=== PATIENT | male | born 1960 | race Two or more races ===

== ENCOUNTER 2024-12-23 08:01 | Emergency (ER) | payer MEDICAID, OTHER ==
[~2024-12-23] VITALS: Ht 165.1 cm; Wt 87.2 kg
[~2024-12-23 08:01] MED LIST: DICY20TA; PROM25TA10
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
--- NOTE | 2024-12-23 09:19 | DVH ---
INDICATION: LOW BACK PAIN TO LEFT LOWER LEG TECHNIQUE: 4 views of the lumbar spine were obtained. COMPARISON: None FINDINGS: There are no acute fractures or subluxations. Degenerative disc space narrowing at L5-S1. Suggestion of neural foraminal stenosis at L5-S1. IMPRESSION: No acute fracture or subluxation.
--- NOTE | 2024-12-23 09:22 | DVH ---
CLINICAL INDICATION: Pain TECHNIQUE: XY L KNEE 4V XRAY Comparison: None FINDINGS/IMPRESSION: : Cortical irregularity at the lateral aspect of the patella may represent a mildly displaced fracture. Small joint effusion.
[2024-12-23] MEDS ORDERED: TRAM50TA2 PO (09:46)
[2024-12-23 09:52] VITALS: BP 166/89; PULSE 72; RESP 17; TEMP 98.2; O2SAT 97
== END 2024-12-23 09:53 | disposition home or self-care (01) ==
LOC: ER 08:01
DX: S82.032A Displaced transverse fracture of left patella, initial encounter for closed fracture (principal); M48.061 Spinal stenosis, lumbar region without neurogenic claudication; M54.16 Radiculopathy, lumbar region; F17.210 Nicotine dependence, cigarettes, uncomplicated; Z90.49 Acquired absence of other specified parts of digestive tract; Z79.899 Other long term (current) drug therapy; X58.XXXA Exposure to other specified factors, initial encounter; Y93.89 Activity, other specified; Y92.89 Other specified places as the place of occurrence of the external cause; Y99.8 Other external cause status
CPT/HCPCS: 72100; 73564

== ENCOUNTER 2025-01-25 07:37 | Inpatient (IN) | payer MEDICAID ==
[~2025-01-25] VITALS: Ht 165.1 cm; Wt 89.7 kg
[~2025-01-25 07:37] MED LIST changes: +TRAM50TA2 PO
--- NOTE | 2025-01-25 07:59 | ED.PDOC ---
GI ASSESSMENT HPI Comments 65 y/o M, with no prior medical history presents to the ED for CC of abdominal pain. Patient states, he has been experiencing epigastric abdominal pain with associated nausea, vomiting, and diarrhea x10 days. Patient reports, along the same time symptoms commenced granddaughter landed on epigastric area while jumping on the trampoline. At this time patient c/o 7/10 abdominal pain. Patient denies fever, chills, melena, back pain, or urinary symptoms. No other symptoms or modifying factors are present at this time. Chief Complaint: Abdominal Pain Time Seen by MD: 07:50 Primary Care Provider: AALIYAH Reviewed Notes: Nurses Notes, Medications, Allergies Allergies: Coded Allergies: NO KNOWN ALLERGIES (Unverified , 06/05/13) Home Meds Active Scripts Tramadol Hcl (Tramadol Hcl) 50 Mg Tab, 50 MG PO TID, #20 TAB Prov:PEARL FARAH 12/23/24 Reported Medications Dicyclomine Hcl (Dicyclomine Hcl) 20 Mg Tab, #30 06/05/13 Promethazine Hcl (Promethazine Hcl) 25 Mg Tab, #20 06/05/13 Information Source: Patient Mode of Arrival: Ambulatory Timing: Days Duration: Since onset Prehospital treatment: None Quality: None Vomitus: Watery Stool: Normal Severity: Moderate Recent: None Recent Hx of: None Pain Location: Epigastric Modifying Factors: Nothing Associated sign and symptoms: Nausea, Vomiting, Diarrhea, Abdominal Pain Past Medical History PAST MEDICAL HISTORY: Denies Surgical History: Appendectomy Family History Family History: Family hx of DM, Family hx of heart tristan Social History Smoker: Cigarettes Alcohol: Occasionally Drugs: Denies Drug Use Lives In: Home Constitutional: denies: chills, diaphoresis, fatigue, fever, malaise, sweats, weakness, others EENTM: denies: blurred vision, double vision, ear bleeding, ear discharge, ear drainage, ear pain, ear ringing, eye pain, eye redness, hearing loss, mouth pain, mouth swelling, nasal discharge, nose bleeding, nose congestion, nose pain, photophobia, tearing, throat pain, throat swelling, voice changes, others Respiratory: denies: cough, hemoptysis, orthopnea, SOB at rest, shortness of breath, SOB with excertion, stridor, wheezing, others Cardiovascular: denies: chest pain, dizzy spells, diaphoresis, Dyspnea on exertion, edema, irregular heart beat, left arm pain, lightheadedness, palpitations, PND, syncope, others Gastrointestinal: reports: abdominal pain, diarrhea, nausea, vomiting; denies: abdomen distended, blood streaked bowels, constipated, dysphagia, difficulty swallowing, hematemesis, melena, poor appetite, poor fluid intake, rectal bleeding, rectal pain, others Genitourinary: denies: burning, dysuria, flank pain, frequency, hematuria, incontinence, penile discharge, penile sore, pain, testicle pain, testicle swelling, urgency, others Neurological: denies: dizziness, fainting, headache, left sided numbness, left sided weakness, numbness, paresthesia, pre-existing deficit, right sided numbnes s, right sided weakness, seizure, speech problems, tingling, tremors, weakness, others Musculoskeletal: denies: back pain, gout, joint pain, joint swelling, muscle pain, muscle stiffness, neck pain, others Integumetry: denies: bruises, change in color, change in hair/nails, dryness, laceration, lesions, lumps, rash, wounds, others Allergic/Immunocompromised: denies: Difficulty Healing, Frequent Infections, Hives, Itching, others Hematologic/Lymphatic: denies: anemia, blood clots, easy bleeding, easy bruising, swollen glands, others Endocrine: denies: excessive hunger, excessive sweating, excessive thirst, excessive urination, flushing, intolerance to cold, intolerance to heat, unexplained weight gain, unexplained weight loss, others Psychiatric: denies: anxiety, bipolar disorder, depression, hopeless, panic disorder, schizophrenia, sleepless, suicidal, others All Other Systems: Reviewed and Negative Physical Exam General Appearance: Moderate Distress, Obese HEENT: Normal ENT Inspection, Pharynx Normal, TMs Normal Neck: Full Range of Motion, Non-Tender, Normal, Normal Inspection Respiratory: Chest Non-Tender, Lungs Clear, No Accessory Muscle Use, No Respiratory Distress, Normal Breath Sounds Cardiovascular: No Edema, No JVD, No Murmur, No Gallop, Normal Peripheral Pulses, Regular Rate/Rhythm Breast Exam: Deferred Gastrointestinal: Diffuse, No Organomegaly, No Pulsatile Mass, Normal Bowel Sounds, Soft, Tenderness Genitalia: Deferred Pelvic: Deferred Rectal: Deferred Extremities: No calf tenderness, Normal capillary refill, Normal inspection, Normal range of motion, Non-tender, No pedal edema Musculoskeletal : Apperance: Normal Neurologic: Alert, 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 Was a procedure done?: No GI differential Dx Differential Diagnosis: Gastritis/PUD, Gastroenteritis, Electrolyte Imbalance, Food Poisoning, Bacterial, Viral X-Ray, Labs, Meds, VS Vital Signs Date Time Temp Pulse Resp B/P (MAP) Pulse Ox O2 Delivery O2 Flow Rate FiO2 01/25/25 08:39 61 18 95 Room Air* 0 21 01/25/25 08:39 97.5 61 18 144/79 (100) 95 97.5 01/25/25 07:39 98.2 79 19 132/96 96 98.2 Lab Test 01/25/25 09:25 01/25/25 08:30 Range/Units Urine Color Yellow Yellow Urine Clarity Clear Clear Urine pH 5.5 5.0-9.0 Urine Specific [place]enn[place] 1.033 1.001-1.035 Urine Protein Negative Negative Urine Ketones Negative Negative Urine Blood Negative Negative /uL Urine Nitrite Negative Negative Urine Bilirubin Negative Negative Urine Urobilinogen Normal Negative mg/dL Urine Leukocyte Esterase Negative Negative /uL Urine RBC 3 0 - 3 /hpf Urine Microscopic WBC < 1 0-3 /HPF Urine Squamous Epithelial Cells Few <5 /hpf Urine Bacteria None seen None Seen /hpf Urine Mucus Few None Seen Urine Glucose Normal Normal mg/dL White Blood Count 7.1 4.4-10.8 10^3/uL Red Blood Count 5.50 4.5-5.90 10^6/uL Hemoglobin 16.6 13.5-17.5 g/dL Hematocrit 48.3 41.0-53.0 % Mean Corpuscular Volume 87.7 80.0-100.0 fL Mean Corpuscular Hemoglobin 30.2 28.0-32.0 pg Mean Corpuscular Hemoglobin Concent 34.4 32.0-36.0 g/dL Red Cell Distribution Width 13.2 11.8-14.3 % Platelet Count 218 140-450 10^3/uL Mean Platelet Volume 8.4 6.9-10.8 fL Neutrophils (%) (Auto) 70.2 37.0-80.0 % Lymphocytes (%) (Auto) 18.9 10.0-50.0 % Monocytes (%) (Auto) 8.6 0.0-12.0 % Eosinophils (%) (Auto) 1.7 0.0-7.0 % Basophils (%) (Auto) 0.6 0.0-2.0 % Neutrophils # (Auto) 5.0 1.6-8.6 10 ^3/uL Lymphocytes # (Auto) 1.3 0.4-5.4 10 ^3/uL Monocytes # (Auto) 0.6 0-1.3 10 ^3/uL Eosinophils # (Auto) 0.1 0-0.8 10 ^3/uL Basophils # (Auto) 0 0-0.2 10 ^3/uL Nucleated Red Blood Cells 0.0 % Sodium Level 143 136-145 mmol/L Potassium Level 4.3 3.5-5.1 mmol/L Chloride Level 110 H 98-107 mmol/L Carbon Dioxide Level 24 20-31 mmol/L Anion Gap 9 5-15 Blood Urea Nitrogen 11 9-23 mg/dL Creatinine 1.03 0.700-1.30 mg/dL Glomerular Filtration Rate Calc 81 >90 mL/min BUN/Creatinine Ratio 10.7 10.0-20.0 Serum Glucose 133 H 74-106 mg/dL Calcium Level 8.8 8.7-10.4 mg/dL Total Bilirubin 0.9 0.2-1.0 mg/dL Aspartate Amino Transferase (AST) 26 13-40 U/L Alanine Aminotransferase (ALT) 36 7-40 U/L Alkaline Phosphatase 85 46-116 U/L Total Protein 6.9 5.7-8.2 g/dL Albumin 4.2 3.2-4.8 g/dL Lipase 85 H 12-53 U/L [address] [address] Ph: [phone] DIAGNOSTIC IMAGING Diagnostic Imaging Report : [id number] Signed PATIENT: SIM BROWN ACCT: [id number] UNIT: [id number] : 1960 LOC: ER ROOM / BED: / AGE / SEX: 65 / M ADM STATUS: REG ER SERVICE [id number] ORDERING PHYSICIAN: JACQUES MAURICIO MD PROCEDURE(s): GBUS - GALLBLADDER REASON: pain ORDER NUMBER(s): [id number], ACCESSION NUMBER(s): [id number] INDICATION: pain TECHNIQUE: Multiple real-time sonographic images were obtained of the right upper quadrant. COMPARISON: None FINDINGS: The liver demonstrates increased echotexture without focal mass lesions. The liver measures 20.1 cm. There is no intrahepatic or extrahepatic ductal dilatation. The common duct is suboptimally visualized. The gallbladder is without evidence of stone or sludge. Gallbladder is contracted and suboptimally evaluated. The gallbladder wall measures 0.2 cm and is within normal limits. The right kidney measures 10.0 cm. The right kidney is normal in contour, size, and shape. The echogenicity is normal. There is no hydronephrosis. The pancreas is not well visualized due to overlying bowel gas. IMPRESSION: Hepatic steatosis and hepatomegaly. ATED BY: RAGHU RIBERA MD DICTATED DATE/TIME: 01/25/25843 SIGNED BY: RAGHU RIBERA MD SIGNED DATE/TIME: 01/25/25843 CC: The patient's CBC is within normal limits The chemistry panel is within normal limits. The urine test is negative The lipase is elevated at 85 The patient is being admitted with a diagnosis of acute pancreatitis The patient understands and agrees with the management Images Reviewed?: Images reviewed and evaluated by me Time of 1ST Reevaluation: 08:20 Reevaluation 1ST: Unchanged Patient Education/Counseling: Diagnosis, Treatment, Prognosis Family Education/Counseling: No Family Present SEPSIS Sepsis Screen Date sepsis recognized/suspect: Jan 25, 2025 Time Sepsis recognized/suspect: 0739 Recent Procedure: No On Antibiotic Therapy: No Respiratory Rate >20: No Heart Rate >90: No Temp<36 C (96.8 F) or >38.3 C: No SBP <90 or MAP <65 mmHG: No New Acute Mental Status Change: No Is the patient on CPAP, BIPAP,: No Physician Orders Gallbladder (01/25/25 07:55) Vital Signs Date Time Temp Pulse Resp B/P (MAP) Pulse Ox O2 Delivery O2 Flow Rate FiO2 01/25/25 08:39 61 18 95 Room Air* 0 21 9/1/25 08:39 97.5 61 18 144/79 (100) 95 97.5 01/25/25 07:39 98.2 79 19 132/96 96 98.2 Laboratory Tests Test 01/25/25 08:30 White Blood Count 7.1 10^3/uL (4.4-10.8) Departure 1 Departure Time of Disposition: 10:42 Impression: Primary Impression: Intractable abdominal pain Additional Impression: Acute pancreatitis Qualified Codes: K85.91 - Acute pancreatitis with uninfected necrosis, unspecified Disposition: ADMITTED INPATIENT Admit to: Med Surg Condition: Fair Critical Care Note Critical Care Time?: No Stability Stability form required: Yes Unstable for transfer: ED Physician Assesment (Clinical assesment) Heart Score Heart Score: Heart Score Response (Comments) Value History N/A 0 EKG N/A 0 Age N/A 0 Risk Factors N/A 0 Troponin N/A 0 Total 0 I personally scribed for JACQUES MAURICIO MD ([email or web address]) on 01/25/25 at 07:59. Electronically submitted by Eva Siegel ([email or web address]). I personally scribed for JACQUES MAURICIO MD ([email or web address]) on 01/25/25 at 09:14. Electronically submitted by Eva Sigeel ([email or web address]). JACQUES MAURICIO MD Jan 25, 2025 07:59
[2025-01-25 08:39] VITALS: PULSE 61; RESP 18; O2SAT 95
--- NOTE | 2025-01-25 08:46 | DVH ---
INDICATION: pain TECHNIQUE: Multiple real-time sonographic images were obtained of the right upper quadrant. COMPARISON: None FINDINGS: The liver demonstrates increased echotexture without focal mass lesions. The liver measure s 20.1 cm. There is no intrahepatic or extrahepatic ductal dilatation. The common duct is suboptimally visualize d. The gallbladder is without evidence of stone or sludge. Gallbladder is contracted and suboptimally ev aluated. The gallbladder wall measures 0.2 cm and is within normal limits. The right kidney measures 10.0 cm. The right kidney is normal in contour, size, and shape. The echoge nicity is normal. There is no hydronephrosis. The pancreas is not well visualized due to overlying bowel gas. IMPRESSION: Hepatic steatosis and hepatomegaly.
[2025-01-25 09:05] LABS: Hematocrit 48.3 % (41.0-53.0); Hemoglobin 16.6 g/dL (13.5-17.5); Mean Corpuscular Hemoglobin 30.2 pg (28.0-32.0); Mean Corpuscular Volume 87.7 fL (80.0-100.0); Nucleated Red Blood Cells % 0.0 %
[2025-01-25 09:27] LABS: Alanine Aminotransferase 36 U/L (7-40); Albumin 4.2 g/dL (3.2-4.8); Alkaline Phosphatase 85 U/L (46-116); Anion Gap 9 (5-15); BUN/Creatinine Ratio 10.7 (10.0-20.0); Blood Urea Nitrogen 11 mg/dL (9-23); Calcium 8.8 mg/dL (8.7-10.4); Carbon Dioxide 24 mmol/L (20-31); Potassium 4.3 mmol/L (3.5-5.1); Sodium 143 mmol/L (136-145); Total Protein 6.9 g/dL (5.7-8.2)
[2025-01-25 09:28] LABS: Bilirubin, Total 0.9 mg/dL (0.2-1.0)
[2025-01-25 09:30] LABS: Chloride 110 mmol/L (98-107); Glucose 133 mg/dL (74-106)
[2025-01-25 09:48] LABS: Urine Protein, UAD Negative (Negative)
[2025-01-25 10:11] LABS: Lipase 85 U/L (12-53)
[2025-01-25] MEDS ORDERED: DOCUSATE SOD 100 MG CAP PO PRN (14:00)
--- NOTE | 2025-01-25 14:08 | DVHHP2 ---
History of Present Illness Reason for Visit: Abdominal pain History of Present Illness 65-year-old male with history of hernia and pancreatitis, presented to the ED with chief complaint of abdominal pain. Patient states he has been having epigastric/abdominal pain with nausea/vomiting/diarrhea for 10 days, he states he has not had diarrhea or vomiting today. Per patient he is being scheduled for hernia repair in the next couple of weeks and thinks that when his granddaughter jumped on his epigastric area she may have irritated that area. After pain medication patient states pain 08/03, prior to 12/03. Patient denies any fever, chills, melena, back pain, urinary symptoms, no other symptoms or modifying factors. Patient is being admitted to medical/surgical for monitoring and treatment. Past Medical History Denies Past Surgical History Appendectomy, right eye surgery Family History: None Smoke: Quit (Patient quit 2 weeks ago, 10+ years of smoking 1 pack per day) ALCOHOL: none Drugs: None Lives: with Family Domestic Violence: Neg Review of Systems Constitutional: No: Fever, Chills, Sweats, Weakness, Malaise, Other Eyes: No: Pain, Vision change, Conjunctivae inflammation, Eyelid inflammation, Other, Redness ENT: No: Ear pain, Ear discharge, Nose pain, Nose discharge, Nose congestion, Mouth pain, Mouth swelling, Throat pain, Throat swelling, Other Respiratory: No: Cough, Dry, Shortness of breath, SOB with excertion, Wheezing, Hemoptysis, Pleuritic Pain, Sputum, Wheezing, Other Cardiovascular: No: Chest Pain, Palpitations, Orthopnea, Paroxysmal Noc. Dyspnea, Edema, Lt Headedness, Other Gastrointestinal: Nausea, Abdominal Pain; No: Vomiting, Diarrhea, Constipation, Melena, Hematochezia, Other Genitourinary: No Dysuria, No Frequency, No Incontinence, No Hematuria, No Retention, No Other Musculoskeletal: No: other, neck pain, shoulder pain, arm pain, back pain, hand pain, leg pain, foot pain Skin: No: Rash, Lesions, Jaundice, Bruising, Other Neurological: No: Weakness, Numbness, Incoordination, Change in speech, Confusion, Seizures, Other Allergies: Coded Allergies: NO KNOWN ALLERGIES (Unverified , 06/05/13) Exam Vital Signs Vital Signs Date Time Temp Pulse Resp B/P (MAP) Pulse Ox O2 Delivery O2 Flow Rate FiO2 9/1/25 13:33 61 18 133/72 (92) 99 01/25/25 11:45 97.8 97.8 01/25/25 08:39 Room Air* 0 21 General Appearance: Alert, Oriented X3, Cooperative, No acute distress HEENT: Atraumatic, PERRLA, EOMI, Mucous membr. moist/pink Respiratory: Clear to auscultation, Normal air movement Cardiovascular: Regular rate, Normal S1, Normal S2, No murmurs Abdominal: Normal bowel sounds, Soft, No hepatospenomegaly, No masses, Other (Tenderness to mid epigastric area) Extremities: No clubbing, No cyanosis, No edema, Normal pulses, No tenderness/swelling Skin: No rashes, No breakdown, No significant lesion Neuro: Normal gait, Normal speech, Strength at 5/5 X4 ext, Normal tone, Sensation intact, Cranial nerves 3-12 NL, Reflexes 2+ Psych/Mental Status: Mental status NL, Mood NL Labs/Xrays Reviewed with patient Labs Test 01/25/25 09:25 01/25/25 08:30 Range/Units Urine Color Yellow Yellow Urine Clarity Clear Clear Urine pH 5.5 5.0-9.0 Urine Specific [place] 1.033 1.001-1.035 Urine Protein Negative Negative Urine Ketones Negative Negative Urine Blood Negative Negative /uL Urine Nitrite Negative Negative Urine Bilirubin Negative Negative Urine Urobilinogen Normal Negative mg/dL Urine Leukocyte Esterase Negative Negative /uL Urine RBC 3 0 - 3 /hpf Urine Microscopic WBC < 1 0-3 /HPF Urine Squamous Epithelial Cells Few <5 /hpf Urine Bacteria None seen None Seen /hpf Urine Mucus Few None Seen Urine Glucose Normal Normal mg/dL White Blood Count 7.1 4.4-10.8 10^3/uL Red Blood Count 5.50 4.5-5.90 10^6/uL Hemoglobin 16.6 13.5-17.5 g/dL Hematocrit 48.3 41.0-53.0 % Mean Corpuscular Volume 87.7 80.0-100.0 fL Mean Corpuscular Hemoglobin 30.2 28.0-32.0 pg Mean Corpuscular Hemoglobin Concent 34.4 32.0-36.0 g/dL Red Cell Distribution Width 13.2 11.8-14.3 % Platelet Count 218 140-450 10^3/uL Mean Platelet Volume 8.4 6.9-10.8 fL Neutrophils (%) (Auto) 70.2 37.0-80.0 % Lymphocytes (%) (Auto) 18.9 10.0-50.0 % Monocytes (%) (Auto) 8.6 0.0-12.0 % Eosinophils (%) (Auto) 1.7 0.0-7.0 % Basophils (%) (Auto) 0.6 0.0-2.0 % Neutrophils # (Auto) 5.0 1.6-8.6 10 ^3/uL Lymphocytes # (Auto) 1.3 0.4-5.4 10 ^3/uL Monocytes # (Auto) 0.6 0-1.3 10 ^3/uL Eosinophils # (Auto) 0.1 0-0.8 10 ^3/uL Basophils # (Auto) 0 0-0.2 10 ^3/uL Nucleated Red Blood Cells 0.0 % Sodium Level 143 136-145 mmol/L Potassium Level 4.3 3.5-5.1 mmol/L Chloride Level 110 H 98-107 mmol/L Carbon Dioxide Level 24 20-31 mmol/L Anion Gap 9 5-15 Blood Urea Nitrogen 11 9-23 mg/dL Creatinine 1.03 0.700-1.30 mg/dL Glomerular Filtration Rate Calc 81 >90 mL/min BUN/Creatinine Ratio 10.7 10.0-20.0 Serum Glucose 133 H 74-106 mg/dL Calcium Level 8.8 8.7-10.4 mg/dL Total Bilirubin 0.9 0.2-1.0 mg/dL Aspartate Amino Transferase (AST) 26 13-40 U/L Alanine Aminotransferase (ALT) 36 7-40 U/L Alkaline Phosphatase 85 46-116 U/L Total Protein 6.9 5.7-8.2 g/dL Albumin 4.2 3.2-4.8 g/dL Lipase 85 H 12-53 U/L SEPSIS Sepsis Screen Date sepsis recognized/suspect: Jan 25, 2025 Time Sepsis recognized/suspect: 07 Recent Procedure: No On Antibiotic Therapy: No Respiratory Rate >20: No Heart Rate >90: No Temp<36 C (96.8 F) or >38.3 C: No SBP <90 or MAP <65 mmHG: No New Acute Mental Status Change: No Is the patient on CPAP, BIPAP,: No Physician Orders Gallbladder (01/25/25 07:55) Admit (01/25/25 13:59) Allergies (01/25/25 13:59) Code Status (01/25/25 13:59) 0.9% Ns 1000 Ml (01/25/25 14:00) Hydrocodone-Acet 5/325mg Tab ([place] 5/32 (01/25/25 14:00) Ondansetron Hcl (Zofran) (01/25/25 14:00) Docusate Sodium Capsule (Colace Capsule) (01/25/25 14:00) Complete Blood Count (01/26/25 04:00) Comprehensive Metabolic Panel (01/26/25 04:00) Condition: Fair (01/25/25 13:59) BRP (01/25/25 13:59) Morphine Sulfate Injection (01/25/25 14:00) Regular Diet (01/25/25 Dinner) Pantoprazole Tablet (Protonix Tablet) (01/26/25 06:00) Vital Signs Date Time Temp Pulse Resp B/P (MAP) Pulse Ox O2 Delivery O2 Flow Rate FiO2 01/25/25 13:33 61 18 133/72 (92) 99 01/25/25 11:45 97.8 67 16 143/87 (105) 97 97.8 01/25/25 08:39 61 18 95 Room Air* 0 21 01/25/25 08:39 97.5 61 18 144/79 (100) 95 97.5 01/25/25 07:39 98.2 79 19 132/96 96 98.2 Laboratory Tests Test 01/25/25 08:30 White Blood Count 7.1 10^3/uL (4.4-10.8) Assessment/Plan Assessment/Plan Abdominal pain/possible acute pancreatitis Admit to medical/surgical and monitor overnight Pain medication p.r.n. Nausea medication p.r.n. IV fluids PPX/diet VTE prophylaxis not indicated patient is ambulatory GI prophylaxis added Protonix Regular diet, per patient he can still eat, if patient does not tolerate can do soft or full liquid diet Plan discussed with: Patient My Orders Orders - ANIA COLBY [employer] Procedure Category Date Status Time Admit ADMIT 01/25/25 Verified 13:59 Allergies NELLY 01/25/25 Verified 13:59 Code Status CODE 01/25/25 Verified 13:59 0.9% Ns 1000 Ml PHA 01/25/25 Verified 14:00 Hydrocodone-Acet PHA 01/25/25 Verified 5/325mg Tab ([place] 14:00 Ondansetron Hcl PHA 01/25/25 Verified (Zofran) 14:00 Docusate Sodium PHA 01/25/25 Verified Capsule (Colace 14:00 Complete Blood Count LAB 01/26/25 Verified 04:00 Comprehensive LAB 01/26/25 Verified Metabolic Panel 04:00 Condition: Fair NELLY 01/25/25 Verified 13:59 BRP NELLY 01/25/25 Verified 13:59 Morphine Sulfate PHA 01/25/25 Verified Injection 14:00 Regular Diet DIET 01/25/25 Verified Dinner Pantoprazole Tablet PHA 01/26/25 Verified (Protonix Tablet) 06:00 Date of Service: Jan 25, 2025 Billing Provider: ANIA COLBY Common Visit Codes: [id number] INP/OBS CARE (HIGH) ANIA COLBY Jan 25, 2025 14:08
[2025-01-25] MEDS: SODIUM CHLORIDE 0.9% 1,000 ML IV SCH (15:04)
[2025-01-25] MEDS: ONDANSETRON HCL 4 MG/2 ML VIAL IV PRN (16:23)
[2025-01-25] MEDS: MORPHINE SULFATE INJ 2 MG/ml SYRG IV PRN (16:23)
[2025-01-25 17:05] VITALS: BP 119/74; PULSE 58; RESP 18; TEMP 97.9; O2SAT 95
[2025-01-25] MEDS: HYDROcodone-ACET 5/325MG TAB PO PRN (20:41)
[2025-01-25 21:00] VITALS: BP 125/80; PULSE 62; RESP 18; TEMP 98; O2SAT 94
[2025-01-25] MEDS ORDERED: NAP500T PO (22:10)
[2025-01-26 01:27] VITALS: BP 148/85; PULSE 56; RESP 18; TEMP 97.7; O2SAT 94
[2025-01-26] MEDS: PANTOPRAZOLE 40 MG TAB PO SCH (05:22)
[2025-01-26 05:24] VITALS: BP 133/79; PULSE 63; RESP 18; TEMP 98.3; O2SAT 94
[2025-01-26 06:36] LABS: Hematocrit 44.2 % (41.0-53.0); Hemoglobin 15.5 g/dL (13.5-17.5); Mean Corpuscular Hemoglobin 30.6 pg (28.0-32.0); Mean Corpuscular Volume 87.2 fL (80.0-100.0); Nucleated Red Blood Cells % 0.3 %
[2025-01-26 06:56] LABS: Alanine Aminotransferase 35 U/L (7-40); Albumin 4.0 g/dL (3.2-4.8); Alkaline Phosphatase 66 U/L (46-116); Anion Gap 9 (5-15); BUN/Creatinine Ratio 11.8 (10.0-20.0); Blood Urea Nitrogen 10 mg/dL (9-23); Carbon Dioxide 21 mmol/L (20-31); Glucose 105 mg/dL (74-106); Potassium 4.1 mmol/L (3.5-5.1); Sodium 140 mmol/L (136-145); Total Protein 6.3 g/dL (5.7-8.2)
[2025-01-26 06:59] LABS: Bilirubin, Total 1.3 mg/dL (0.2-1.0); Calcium 8.3 mg/dL (8.7-10.4); Chloride 110 mmol/L (98-107)
[2025-01-26 07:50] VITALS: PULSE 79; RESP 13; O2SAT 96
[2025-01-26 13:00] VITALS: BP 129/64; PULSE 61; RESP 16; TEMP 97.8; O2SAT 92
[2025-01-26 17:00] VITALS: BP 118/71; PULSE 57; RESP 16; TEMP 97.9; O2SAT 94
--- NOTE | 2025-01-26 17:35 | DVHPN2 ---
Subjective Patient continues to report having epigastric pain Reviewed: Care Plan, H&P, Medications, Previous Orders Changes from previous H/P or p: No Changes General: Per HPI Eyes: No Pain, No Vision change, No Conjunctivae inflammation, No Eyelid inflammation, No Other, No Redness ENT: No Ear pain, No Ear discharge, No Nose pain, No Nose discharge, No Nose congestion, No Mouth pain, No Mouth swelling, No Throat pain, No Throat swelling, No Other Cardiovascular: No Chest Pain, No Palpitations, No Orthopnea, No Paroxysmal Noc. Dyspnea, No Edema, No Lt Headedness, No Other Respiratory: No Cough, No Dry, No Shortness of breath, No SOB with excertion, No Wheezing, No Hemoptysis, No Pleuritic Pain, No Sputum, No Other Gastrointestinal: Nausea; No Vomiting; Abdominal Pain; No Diarrhea, No Constipation, No Melena, No Hematochezia, No Other Genitourinary: No Dysuria, No Frequency, No Incontinence, No Hematuria, No Retention, No Other Musculoskeletal: No other, No neck pain, No shoulder pain, No arm pain, No back pain, No hand pain, No leg pain, No foot pain Skin: No Rash, No Lesions, No Jaundice, No Bruising, No Other Objective Vitals Vital Signs Date Time Temp Pulse Resp B/P (MAP) Pulse Ox O2 Delivery O2 Flow Rate FiO2 01/26/25 13:00 97.8 61 16 129/64 (85) 92 97.8 01/26/25 07:50 Room Air* 0 21 General Appearance: Alert, Oriented X3, Cooperative, mild distress HEENT: Atraumatic, PERRLA Lungs: Clear to auscultation, Normal air movement Cardiovascular: Normal S1, Normal S2 Abdomen: Normal bowel sounds, Other (Umbilical hernia. Pain to epigastric area with slight palpation) Musculoskeletal: Normal sensory function, Normal motor function Neuro: Normal gait, Normal speech Skin: Dry, Intact Psych/Mental Status: Mental status NL, Mood NL Medications Current Medications Medications Dose Ordered Sig/Ronni Route Start Time Stop Time Status Last Admin Dose Admin Sodium Chloride 1,000 ml @ 120 mls/hr Q8H20M IV 01/25/25 14:00 01/26/25 05:34 120 MLS/HR Acetaminophen/ Hydrocodone Bitart 1 tab Q4HP PRN PO 01/25/25 14:00 01/26/25 11:08 1 TAB Ondansetron HCl 4 mg Q4HP PRN IV 01/25/25 14:00 01/25/25 16:23 4 MG Docusate Sodium 100 mg BIDPRN PRN PO 01/25/25 14:00 Morphine Sulfate 2 mg Q4HPRN PRN IV 01/25/25 14:00 01/25/25 16:23 2 MG Pantoprazole Sodium 40 mg DAILY@0600 PO 01/26/25 06:00 01/26/25 05:22 40 MG Laboratory Results Laboratory Tests 01/26/25 05:50 Chemistry Test 01/26/25 05:50 Albumin 4.0 g/dL (3.2-4.8) Calcium Level 8.3 mg/dL (8.7-10.4) L Total Protein 6.3 g/dL (5.7-8.2) LFT Test 01/26/25 05:50 Alanine Aminotransferase (ALT) 35 U/L (7-40) Alkaline Phosphatase 66 U/L (46-116) Aspartate Amino Transferase (AST) 25 U/L (13-40) Total Bilirubin 1.3 mg/dL (0.2-1.0) H Urinalysis Test 01/25/25 09:25 Urine Color Yellow (Yellow) Urine Clarity Clear (Clear) Urine pH 5.5 (5.0-9.0) Urine Specific [place] 1.033 (1.001-1.035) Urine Protein Negative (Negative) Urine Ketones Negative (Negative) Urine Blood Negative /uL (Negative) Urine Nitrite Negative (Negative) Urine Bilirubin Negative (Negative) Urine Urobilinogen Normal mg/dL (Negative) Urine Leukocyte Esterase Negative /uL (Negative) Urine RBC 3 /hpf (0 - 3) Urine Microscopic WBC < 1 /HPF (0-3) Urine Squamous Epithelial Cells Few /hpf (<5) Urine Bacteria None seen /hpf (None Seen) Urine Mucus Few (None Seen) Urine Glucose Normal mg/dL (Normal) Labs and/or images reviewed: Labs reviewed by me, Image(s) reviewed by me Assessment/Plan Assessment/Plan Impression: -abdominal pain, probably secondary to acute pancreatitis -umbilical hernia -obesity -hepatic steatosis Plan: -CT scan of the abdomen and pelvis -pain management -IV hydration -advance diet as tolerated -repeat CMP, lipase in a.m. -reassess for discharge in a.m. Total time spent with patient discussing and formulating plan of care: 35 minutes. This medical document was created using an electronic medical record system with [employer] dictation system. Although this document has been carefully reviewed, there may still be some phonetic and typographical errors. These areas are purely typographical due to imperfections of the software programs, and do not reflect any compromise in the patient's medical care. Plan discussed with: Patient, Other (RN) Date of Service: Jan 26, 2025 Billing Provider: JENNIFER CINTRON NP Common Visit Codes: [id number] INP/OBS CARE(HIGH) JENNIFER CINTRON NP Jan 26, 2025 17:35
[2025-01-26] MEDS: SODIUM CHLORIDE 0.9% 1,000 ML IV SCH (19:01)
--- NOTE | 2025-01-26 19:04 | DVH ---
Exam: CT CT AB PEL WO CON-NO ORAL OR IV History: Epigastric pain. Umbilical hernia, rule out obstruction. Comparison Study: None TECHNIQUE: Multidetector CT of the abdomen was performed from lung bases to pubic symphysis. Imaging was performed without IV contrast. Axial, coronal and sagittal multiplanar reformats were obtained fr om the axial data set by the technologist. Radiation Dose Information: CT Dose: CTDI volume is 13.16 mGy. Dose-length product is 767.24 mGy*cm FINDINGS: Evaluation of solid organs is limited due to lack of intravenous contrast use. Findings: Lung Bases: No acute or significant lung base finding. Normal heart size. No pleural or pericardial effusion. Liver: HEPATIC STEATOSIS Gallbladder and Biliary Tree: Unremarkable Spleen: Unremarkable Pancreas: The pancreas is grossly normal in appearance. Adrenal Glands: Unremarkable Kidneys: Kidneys are grossly normal without calculi or hydronephrosis. Bladder: Grossly unremarkable for degree of distention. Bowel: The stomach is grossly normal in appearance. Small bowel and colon are normal in caliber and d istribution. The appendix is not visualized; however, no secondary findings of acute appendicitis id entified. Ascites: Absent Lymphadenopathy: No mesenteric, retroperitoneal or periportal lymphadenopathy. Abdominal Wall and Mesentery: Large 7 x 5 cm fat containing umbilical hernia. Defect in the anterior abdominal wall measures 2.8 -2.9 cm. Vasculature: The visualized abdominal aorta is normal in size and caliber. Evaluation of abdominal a nd pelvic vessels is limited due to lack of intravenous contrast. Pelvic Organs: Unremarkable Musculoskeletal: No aggressive focal bony lesions, acute fractures or dislocation. Soft tissues: Unremarkable IMPRESSION: 1. Hepatic steatosis. 2. 7 x 5 cm umbilical hernia containing fat with the defect in the anterior abdominal wall measuring 2.8-2.9 cm. 3. Small left peripelvic cyst left kidney. (1.4-1.5 cm) Radiation optimization: All CT scans at this facility use at least one of these dose optimization pratik hniques: automated exposure control mA and/or kV adjustment per patient size (includes targeted exam s where dose is matched to clinical indication) or iterative reconstruction.
[2025-01-26 21:00] VITALS: BP 139/87; PULSE 58; RESP 16; TEMP 97.7; O2SAT 96
[2025-01-27 01:00] VITALS: BP 137/86; PULSE 60; RESP 12; TEMP 97.8; O2SAT 96
[2025-01-27 05:00] VITALS: BP 132/72; PULSE 58; RESP 16; TEMP 97.7; O2SAT 98
[2025-01-27 06:37] LABS: Alanine Aminotransferase 33 U/L (7-40); Alkaline Phosphatase 70 U/L (46-116); Anion Gap 9 (5-15); Carbon Dioxide 22 mmol/L (20-31); Potassium 4.0 mmol/L (3.5-5.1); Sodium 140 mmol/L (136-145); Total Protein 6.1 g/dL (5.7-8.2)
[2025-01-27 06:38] LABS: Albumin 3.9 g/dL (3.2-4.8); Bilirubin, Total 0.9 mg/dL (0.2-1.0)
[2025-01-27 07:10] LABS: Calcium 8.3 mg/dL (8.7-10.4); Chloride 109 mmol/L (98-107); Glucose 112 mg/dL (74-106); Lipase 61 U/L (12-53)
[2025-01-27 08:24] LABS: BUN/Creatinine Ratio 11.4 (10.0-20.0); Blood Urea Nitrogen 10 mg/dL (9-23)
[2025-01-27 08:40] VITALS: BP 134/76; PULSE 80; RESP 18; TEMP 98; O2SAT 99
[2025-01-27] MEDS ORDERED: HYDR-4902 PO (11:45)
--- NOTE | 2025-01-27 11:48 | DVHDS2 ---
Discharge Summary Date of Admission Jan 25, 2025 at 13:59 Date of Discharge: Jan 27, 2025 Admitting Diagnosis Abdominal pain secondary to pancreatitis Labs/Diagnostic Data: Laboratory Results Test 01/27/25 04:41 01/26/25 05:50 01/25/25 09:25 Sodium Level 140 mmol/L (136-145) Potassium Level 4.0 mmol/L (3.5-5.1) Chloride Level 109 mmol/L (98-107) Carbon Dioxide Level 22 mmol/L (20-31) Anion Gap 9 (5-15) Blood Urea Nitrogen 10 mg/dL (9-23) Creatinine 0.88 mg/dL (0.700-1.30) Glomerular Filtration Rate Calc 96 mL/min (>90) BUN/Creatinine Ratio 11.4 (10.0-20.0) Serum Glucose 112 mg/dL (74-106) Calcium Level 8.3 mg/dL (8.7-10.4) Total Bilirubin 0.9 mg/dL (0.2-1.0) Aspartate Amino Transferase (AST) 24 U/L (13-40) Alanine Aminotransferase (ALT) 33 U/L (7-40) Alkaline Phosphatase 70 U/L (46-116) Total Protein 6.1 g/dL (5.7-8.2) Albumin 3.9 g/dL (3.2-4.8) Lipase 61 U/L (12-53) White Blood Count 5.8 10^3/uL (4.4-10.8) Red Blood Count 5.07 10^6/uL (4.5-5.90) Hemoglobin 15.5 g/dL (13.5-17.5) Hematocrit 44.2 % (41.0-53.0) Mean Corpuscular Volume 87.2 fL (80.0-100.0) Mean Corpuscular Hemoglobin 30.6 pg (28.0-32.0) Mean Corpuscular Hemoglobin Concent 35.1 g/dL (32.0-36.0) Red Cell Distribution Width 13.3 % (11.8-14.3) Platelet Count 202 10^3/uL (140-450) Mean Platelet Volume 8.3 fL (6.9-10.8) Neutrophils (%) (Auto) 67.2 % (37.0-80.0) Lymphocytes (%) (Auto) 21.4 % (10.0-50.0) Monocytes (%) (Auto) 8.0 % (0.0-12.0) Eosinophils (%) (Auto) 2.7 % (0.0-7.0) Basophils (%) (Auto) 0.7 % (0.0-2.0) Neutrophils # (Auto) 3.9 10 ^3/uL (1.6-8.6) Lymphocytes # (Auto) 1.2 10 ^3/uL (0.4-5.4) Monocytes # (Auto) 0.5 10 ^3/uL (0-1.3) Eosinophils # (Auto) 0.2 10 ^3/uL (0-0.8) Basophils # (Auto) 0 10 ^3/uL (0-0.2) Nucleated Red Blood Cells 0.3 % Urine Color Yellow (Yellow) Urine Clarity Clear (Clear) Urine pH 5.5 (5.0-9.0) Urine Specific [place] 1.033 (1.001-1.035) Urine Protein Negative (Negative) Urine Ketones Negative (Negative) Urine Blood Negative /uL (Negative) Urine Nitrite Negative (Negative) Urine Bilirubin Negative (Negative) Urine Urobilinogen Normal mg/dL (Negative) Urine Leukocyte Esterase Negative /uL (Negative) Urine RBC 3 /hpf (0 - 3) Urine Microscopic WBC < 1 /HPF (0-3) Urine Squamous Epithelial Cells Few /hpf (<5) Urine Bacteria None seen /hpf (None Seen) Urine Mucus Few (None Seen) Urine Glucose Normal mg/dL (Normal) Other Laboratory Tests 01/27/25 04:41 01/26/25 05:50 Brief Hx & Hospital Course: History of Present Illness 65-year-old male with history of hernia and pancreatitis, presented to the ED with chief complaint of abdominal pain. Patient states he has been having epigastric/abdominal pain with nausea/vomiting/diarrhea for 10 days, he states he has not had diarrhea or vomiting today. Per patient he is being scheduled for hernia repair in the next couple of weeks and thinks that when his granddaughter jumped on his epigastric area she may have irritated that area. After pain medication patient states pain 08/03, prior to 12/03. Patient denies any fever, chills, melena, back pain, urinary symptoms, no other symptoms or modifying factors. Patient is being admitted to medical/surgical for monitoring and treatment. Course of hospitalization: Patient had gallbladder ultrasound which was negative for any acute pathology. Patient continued to have pain, associated with eating. Repeat lipase is downtrending. Patient had CT scan of the abdomen and pelvis which was negative for any acute pathology, but did reveal patient's previous diagnosis of umbilical/ventral hernia. Patient is scheduled to follow up with an outpatient surgeon for surgery in the next several weeks. Patient's symptoms have improved. Patient will be discharged home as instructed to follow up with his PCP in 1-2 weeks. Patient is agreeable with discharge plan. All questions answered. Physical examination General: Alert and Oriented x3. No acute distress. Well-nourished. Obese Eyes: EOMI. Anicteric. HENT: Moist mucous membranes. Lungs: Clear to auscultation bilaterally. No accessory muscle use. Cardiovascular: Regular rate and rhythm. No murmur. No JVD. Abdomen: Soft, non-tender and non-distended. No palpable masses. Extremities: No edema. Non-tender. Skin: No rashes or lesions. Warm. Neurologic: No focal neurological deficits. CN II-XII grossly intact, but not individually tested. Psychiatric: Cooperative. Appropriate mood and affect. Total time spent with patient discussing and formulating plan of care: 35 minutes. This medical document was created using an electronic medical record system with [employer] dictation system. Although this document has been carefully reviewed, there may still be some phonetic and typographical errors. These areas are purely typographical due to imperfections of the software programs, and do not reflect any compromise in the patient's medical care. Condition at Discharge: Fair Final Diagnosis/Problems List Abdominal pain secondary to ventral hernia -abdominal pain, probably secondary to acute pancreatitis -umbilical hernia -obesity -hepatic steatosis Discharge Disposition: Home Discharge Instruct/Medications Diet: Regular Activity: No Restrictions, As Tolerated Follow Up/Referral: Follow up with PCP, Manny Nguyen MD in 1-2 weeks Follow up with outpatient surgeon for continued evaluation for umbilical hernia surgery Medications: Kirvin 5/325 q.8 hours as needed for [id number] pain Scheduled Naproxen (Naprosyn Tablet), 1 TAB PO BID, (Reported) Scheduled PRN Hydrocodone-Acetaminophen (Hydrocodone Bitartrate/AC 5-325 mg), 1 TAB PO Q8HP PRN 36 Discharge Statement: "Patient was advised to return to the ER or call 911 if any headaches, dizziness, shortness of breath, chest pain, abdominal pain, bleeding, fevers, or worsening of medical condition. Patient was counseled about treatment plan, medications, possible side effects, patientverbalized understanding. All questions were answered to the best of my ability. This discharge took greater then 30 minutes in planning, reviewing documentation, counseling the patient, and discussing with other team members." ASSESSMENT ASSESSMENT Assessment Abdominal pain secondary to ventral hernia Date of Service: Jan 27, 2025 Billing Provider: JENNIFER CINTRON NP Common Visit Codes: [id number] INP/OBS CARE(HIGH) JENNIFER CINTRON NP Jan 27, 2025 11:48
[2025-01-27 12:58] VITALS: BP 129/71; PULSE 62; RESP 16; TEMP 36.7; O2SAT 97
[2025-01-27 13:38] VITALS: BP 129/71; PULSE 62; RESP 16; TEMP 97.6; O2SAT 97
== END 2025-01-27 13:40 | disposition home or self-care (01) | DRG 254 ==
LOC: ER 07:37 → OVERFLOW 13:59 → WEST WING 01-26 18:43
PROVIDERS: ADMIT Nurse Practitioner Acute Care; ATTEND Nurse Practitioner Acute Care
DX: K43.9 Ventral hernia without obstruction or gangrene (principal); K85.90 Acute pancreatitis without necrosis or infection, unspecified; K76.0 Fatty (change of) liver, not elsewhere classified; E66.9 Obesity, unspecified; F17.210 Nicotine dependence, cigarettes, uncomplicated; K42.9 Umbilical hernia without obstruction or gangrene; Z83.3 Family history of diabetes mellitus; Z79.899 Other long term (current) drug therapy; Z68.32 Body mass index [BMI] 32.0-32.9, adult
CPT/HCPCS: 36415; 74176; 76705; 80053; 81001; 83690; 85025; G0378; J2405